=== PATIENT | male | born 1980 | race Caucasian/White ===

== ENCOUNTER 2017-08-12 19:05 | Emergency (ER) | payer OTHER ==
[2017-08-12] MEDS ORDERED: HYDROmorphone INJ* 2 MG/ML CARPUJECT SYRINGE IV SLOW PU ONE (21:13)
[2017-08-12] MEDS ORDERED: Metoclopramide IV* 5 MG/ML 2 ML VIAL IV ONE (21:13)
[2017-08-12] MEDS ORDERED: NS 0.9% 1000 ML* 1,000 ML IV ONE (21:13)
[2017-08-12 21:42] LABS: ABS Basophils 0.2 10^3/ul (0-0.2); ABS Eosinophils 0.2 10^3/ul (0-0.6); ABS Lymphocytes 3.4 10^3/ul (1.0-4.8); ABS Monocytes 0.7 10^3/ul (0-0.8); ABS Neutrophils 16.7 10^3/ul (1.5-7.7); ABS Nucleated RBC 0 10^3/ul; Eosinophil % 0.8 % (0-6); Hematocrit 46 % (42-52); Mean Corpuscular HGB Conc 35 g/dl (31-36); Mean Corpuscular Hemoglobin 31 pg (27-31); Mean Corpuscular Volume 88 fL (80-94); Mean Platelet Volume 8 um3 (7.4-10.4); Nucleated Red Blood Cells % 0; Platelet Count 428 10^3/ul (150-450); Red Cell Distribution Width 12 % (10.5-15); White Blood Count 21.2 10^3/ul (3.5-10.8)
[2017-08-12 21:55] LABS: EGFR Non-African American 83.1 (>60)
[2017-08-12 21:57] LABS: INR 0.9 (0.77-1.02)
[2017-08-12] MEDS ORDERED: Insulin REGULAR(*) 1 UNITS UNIT IV PUSH ONE ×2 (22:05→23:59)
[2017-08-12] MEDS ORDERED: Iohexol 300* (CONTRAST) 10 ML SDV IV ONE (22:07)
[2017-08-12 22:08] LABS: Urine Appearance Clear; Urine Blood 1+ (Negative); Urine Color Yellow; Urine Ketones Negative (Negative); Urine Protein 2+(100 mg/dL) (Negative); Urine Specific Gravity 1.044 (1.010-1.030); Urine Urobilinogen Negative (Negative)
[2017-08-12] MEDS ORDERED: metFORMIN* 500 MG TAB PO ONE (23:43)
[2017-08-13] MEDS ORDERED: NS 0.9% 1000 ML* 1,000 ML IV ONE
[2017-08-13] MEDS ORDERED: Insulin LISPRO* 1 UNITS UNIT SUBCUT ONE (00:01)
--- NOTE | 2017-08-13 01:29 | ED ---
Josh Mejias Tiffany, scribed for Aydee Castañeda MD on 08/12/17 at 2151 . Back Pain - HPI Summary HPI Summary: The patient is a 37 year old M with a chief complaint of left back pain s/p falling down 3 stairs and landing on left side four hours ago. The patient rates the pain 7/10 in severity. Symptoms aggravated by movement. Symptoms alleviated by nothing. Patient denies shortness of breath and loss of consciousness. - History of Current Complaint Chief Complaint: EDBackInjuryPain Stated Complaint: FALL/BACK PAIN Time Seen by Provider: 08/12/17 20:27 Hx Obtained From: Patient Onset/Duration: Lasting Hours - 4 hours, Still Present Onset/Duration: Started Hours Ago - 4 hours Severity Currently: Moderate Pain Intensity: 7 Pain Scale Used: 0-10 Numeric Aggravating Symptom(s): Movement Alleviating Symptom(s): Nothing Associated Signs And Symptoms: Positive: Negative - SOB, LOC - Allergies/Home Medications Allergies/Adverse Reactions: Allergies Allergy/AdvReac Type Severity Reaction Status Date / Time Penicillins Allergy Unknown Verified 08/12/17 19:19 Reaction Details PMH/Surg Hx/FS Hx/Imm Hx Previously Healthy: No - Hx of psoriasis Musculoskeletal History: Reports: Hx Scoliosis EENT History: Denies: Hx Deafness Infectious Disease History: No Infectious Disease History: Denies: Traveled Outside the [place] in Last 30 Days - Family History Known Family History: Positive: Other - No relevant family history - Social History Alcohol Use: None Hx Substance Use: No Substance Use Type: Reports: None Hx Tobacco Use: Yes Smoking Status (MU): Former Smoker Review of Systems Negative: Shortness Of Breath Positive: Other - Left back pain Neurological: Other - NEGATIVE: No LOC All Other Systems Reviewed And Are Negative: Yes Physical Exam - Summary Physical Exam Summary: General: well-appearing, no pain distress Skin: Diffuse psoriasis rash that is old Head: normal Eyes: EOMI, RANDALL ENT: normal Neck: supple, nontender Respiratory: Decreased breath sounds because of pain Cardiovascular: RRR Abdomen: soft, nontender Bowel: present Musculoskeletal: Tenderness over left paraspinal area all the way to the buttocks. Patient has difficulty moving because of pain Neurological: normal, sensory/motor intact, A&O x3 Psychological: affect/mood appropriate Triage Information Reviewed: Yes Vital Signs On Initial Exam: Initial Vitals Temp Pulse Resp BP Pulse Ox 97.3 F 105 16 161/99 98 08/12/17 19:20 08/12/17 19:20 08/12/17 19:20 08/12/17 19:20 08/12/17 19:20 Vital Signs Reviewed: Yes Diagnostics - Vital Signs Vital Signs Temp Pulse Resp BP Pulse Ox 08/12/17 21:45 18 08/12/17 19:20 97.3 F 105 16 161/99 98 - Laboratory Lab Results: Lab Results 08/12/17 Range/Units 21:32 WBC 21.2 H (3.5-10.8) 10^3/ul RBC 5.20 (4.0-5.4) 10^6/ul Hgb 16.0 (14.0-18.0) g/dl Hct 46 (42-52) % MCV 88 (80-94) fL MCH 31 (27-31) pg MCHC 35 (31-36) g/dl RDW 12 (10.5-15) % Plt Count 428 (150-450) 10^3/ul MPV 8 (7.4-10.4) um3 Neut % (Auto) 79.0 (38-83) % Lymph % (Auto) 16.0 L (25-47) % [place] % (Auto) 3.3 (1-9) % Eos % (Auto) 0.8 (0-6) % Baso % (Auto) 0.9 (0-2) % Absolute Neuts (auto) 16.7 H (1.5-7.7) 10^3/ul Absolute Lymphs (auto) 3.4 (1.0-4.8) 10^3/ul Absolute Monos (auto) 0.7 (0-0.8) 10^3/ul Absolute Eos (auto) 0.2 (0-0.6) 10^3/ul Absolute Basos (auto) 0.2 (0-0.2) 10^3/ul Absolute Nucleated RBC 0 10^3/ul Nucleated RBC % 0 Result Diagrams: 08/12/17 21:32 08/12/17 21:32 Lab Statement: Any lab studies that have been ordered have been reviewed, and results considered in the medical decision making process. - CT Chest/Abd/Pel CT Interpretation Completed By: Radiologist - No pneumothorax, airspace consolidation or pleural effusions. The tracheobronchial tree is patent. The heart, mediastinum and great vessels are unremarkable. There is a mildly displaced fracture of the posterior left 11th rib and a nondisplaced fracture of the posterolateral left 10th rib. The remainder of the bony thorax is intact. Enlarged fatty liver. Mild to moderate fatty replacement of the pancreas. The upper abdominal visceral organs are otherwise unremarkable. Normal appearance of the gallbladder. No gross abnormalities of the unenhanced small bowel and colon. Appendix not visualized. The pelvic organs are unremarkable. No intra-abdominal free air, free fluid or loculated collections. There is a subtle cortical defect in the left L1 transverse process, possibly a nondisplaced fracture. There are otherwise no acute osseous abnormalities. 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 ED physician has reviewed this radiology report. Back Pain Course/Dx - Course Assessment/Plan: 37 y/o male fell and c/o L side back pain. Pt has fx of rib 10- 11posteriorally and a fx of the L transverse process of his L4. Pt found diabetic which he does not know about as he hasn't seen a doctor since he was 16. D/c home with percocet and metformin for pain. - Diagnoses Provider Diagnoses: Rib fractures, L4 transverse process fracture, Diabetes mellitus, new onset Discharge - Discharge Plan Condition: Stable Disposition: HOME Prescriptions: Metformin HCl 850 mg PO BID #60 tablet oxyCODONE/Acetamin 5/325 MG* [Percocet 5/325 TAB*] 1 tab PO Q4H PRN #30 tab MDD 6 PRN Reason: Pain Patient Education Materials: Rib Fracture (ED), How to Check Your Blood Sugar ( ED), Type 2 Diabetes in Adults (ED) Referrals: [facility] [Outside] - 2 Days (PLEASE F/U IN 1-2 DAYS) Additional Instructions: Monitor blood sugar at home. PLEASE USE INCENTIVE SPIROMETER EVERY 30 MINUTES TO KEEP YOUR LUNGS EXPANDED The documentation as recorded by the Josh lazar Tiffany accurately reflects the service I personally performed and the decisions made by me, Aydee Castañeda MD.
[2017-08-13 03:02] VITALS: BP 143/87
--- NOTE | 2017-08-13 07:24 | RAD ---
INDICATION: Trauma, fall. COMPARISON: There are no prior studies available for comparison. TECHNIQUE: A CT scan of the chest, abdomen and pelvis was performed with intravenous and without oral contrast following intravenous injection of 131 ml of Omnipaque 300 nonionic contrast. Contiguous axial sections were obtained from the lung apices through the symphysis pubis. Images were reconstructed in the coronal and sagittal planes. FINDINGS: The lungs are clear. No pleural effusion or pneumothorax is seen. No significant enlarged mediastinal or hilar lymph nodes are seen. The heart is within normal limits in size. No pericardial effusion is present. The thoracic aorta is normal in caliber. The liver is moderately enlarged and decreased in attenuation consistent with fatty infiltration. No significant focal hepatic abnormality is seen. The spleen is mildly enlarged without focal abnormality. No calcified gallstones are seen. There is fatty infiltration of the pancreas. The kidneys and adrenal glands are normal in size. There is no evidence for hydronephrosis. No significant focal renal abnormality is seen. The aorta is normal in caliber and demonstrates homogeneous contrast opacification. No significant enlarged retroperitoneal lymph nodes are seen. The stomach, small and large bowel appear nondistended. The appendix appears to be within normal limits. There is mild sigmoid diverticulosis without evidence for diverticulitis. No free intraperitoneal air or fluid is seen. There are nondisplaced fractures of the left posterior 10th and 12th ribs and a slightly displaced fracture of the left posterior 11th rib. There is also a nondisplaced fracture of the left L1 transverse process. No other acute fractures are seen. There is bilateral spondylolysis at the L4 level. There is no evidence for spondylolisthesis. IMPRESSION: 1. THERE ARE FRACTURES OF THE LEFT POSTERIOR 10TH THROUGH 12TH RIBS. THERE IS ALSO A NONDISPLACED FRACTURE OF THE LEFT L1 TRANSVERSE PROCESS. 2. BILATERAL SPONDYLOLYSIS AT THE L4 LEVEL. 2. HEPATOSPLENOMEGALY AND HEPATIC STEATOSIS.
== END 2017-08-13 01:30 | disposition home or self-care (01) ==
LOC: ED 19:05
DX: S22.32XA Fracture of one rib, left side, initial encounter for closed fracture (principal); S32.049A Unspecified fracture of fourth lumbar vertebra, initial encounter for closed fracture; M54.9 Dorsalgia, unspecified; Z87.891 Personal history of nicotine dependence; E11.9 Type 2 diabetes mellitus without complications; W10.9XXA Fall (on) (from) unspecified stairs and steps, initial encounter; Y92.9 Unspecified place or not applicable
CPT/HCPCS: 36415; 71260; 74177; 80053; 81003; 81015; 82150; 82550; 83605; 83690; 85025; 85610; 85730; 86850; 86900; 86901; 96374; 96375; 99283; A9270-GY; J1170; J2765; Q9967